=== PATIENT | female | born 1995 | race Caucasian/White ===

== ENCOUNTER 2017-04-26 20:21 | Emergency (ER) | payer BC ==
[~2017-04-26 20:21] MED LIST: ALB18R INH; IMPLANON; METH20TA33 PO; ONDA4TAB PO
--- NOTE | 2017-04-26 20:23 | ER Report ---
History and Physical Time Seen By MD: 20:23 HPI/ROS CHIEF COMPLAINT: Vomiting, abdominal pain HISTORY OF PRESENT ILLNESS: 21-year-old female presents ambulatory the ER complaining of left upper quadrant abdominal pain radiating into her left lower quadrant abdominal area. Patient notes sudden onset approximately one hour prior to arrival after eating pizza. Patient thinks she might be gluten sensitive, but she's never been tested. She taken gluten out of her diet and rechallenged with symptoms. Patient denies dysuria, frequency or hematuria. Patient notes no diarrhea. She denies exposure to ill contacts, recent travel or consumption of bad food. REVIEW OF SYSTEMS: Respiratory: No cough, no dyspnea. Cardiovascular: No chest pain, no palpitations. Gastrointestinal: As above Musculoskeletal: No back pain. Allergies: Coded Allergies: Penicillins (Verified Allergy, Severe, HIVES, 12/11/15) amoxicillin (Verified Allergy, Severe, HIVES, 12/11/15) doxycycline (Verified Allergy, Intermediate, HIVES, 12/11/15) Uncoded Allergies: "JESSE". (Allergy, Mild, LOCAL SWELLING, 02/04/14) Home Meds Active Scripts Ondansetron (ZOFRAN ODT) 4 Mg Tab.rapdis, 4 MG PO every 6 hours Y for NAUSEA/ VOMITING, #12 TAB TAKE 1 TABLET BY MOUTH EVERY 12 HOURS Prov:LUZMARIA GARCIA DO 04/26/17 Oxycodone Hcl/Acetaminophen (PERCOCET 5-325 MG TABLET) 1 Each Tablet, 1 EACH PO Q4-6H Y for PAIN, #12 Prov:LUZMARIA GARCIA DO 04/26/17 Reported Medications Albuterol Sulfate (VENTOLIN HFA) 18 Gm Inh, 2 PUFF INH Q4-6H, INH 12/11/15 [Implanon ] No Conflict Check 02/04/14 Discontinued Reported Medications Methylphenidate Hcl (RITALIN) 20 Mg Tablet, 20 MG PO QDAY 12/11/15 Reviewed Nurses Notes: Yes Old Medical Records Reviewed: Yes Hx Smoking: No Exposure to Second Hand Smoke?: No Hx Substance Use Disorder: No Hx Alcohol Use: No Constitutional Vital Sign - Last 24 Hours 04/26/17 04/26/17 04/26/17 04/26/17 20:28 20:30 20:36 20:51 Temp 98.7 Pulse 55 53 68 Resp 16 B/P (MAP) 126/77 (93) 126/77 Pulse Ox 98 98 95 O2 Delivery Room Air 04/26/17 04/26/17 04/26/17 04/26/17 21:03 21:06 21:21 21:30 Pulse 61 60 B/P (MAP) 120/80 (93) ???/??? (1665) Pulse Ox 97 96 04/26/17 04/26/17 04/26/17 04/26/17 21:35 21:36 21:51 22:00 Pulse 58 70 B/P (MAP) 102/46 (64) 95/46 (62) Pulse Ox 97 98 04/26/17 22:06 Pulse 66 Pulse Ox 98 Physical Exam Vital signs stable, afebrile, pulse ox normal General Appearance: The patient is alert, has no immediate need for airway protection and no current signs of toxicity. Sclerae pale appearing, skin warm and dry HEENT: Pupils equal and round no injection. Oropharynx without redness, mucous. Membranes are moist Respiratory: Chest is non tender, lungs are clear to auscultation. Cardiac: regular rate and rhythm Gastrointestinal: Abdomen is soft. Mild left upper quadrant and left lower quadrant tenderness, no masses, bowel sounds normal. Musculoskeletal: Neck: Neck is supple and non tender. Extremities have full range of motion and are non tender. Skin: No rashes or lesions. DIFFERENTIAL DIAGNOSIS: After history and physical exam differential diagnosis was considered for abdominal pain including but not limited to appendicitis, cholecystitis, gastritis, gastritis, food poisoning, viral syndrome, food sensitivity and urinary tract infection. Medical Decision Making Data Points Result Diagram: 04/26/17210304/26/172103 Laboratory Hematology Test 04/26/17 21:04 04/26/17 21:36 Red Blood Count 4.64 M/uL (4.17-5.56) Mean Corpuscular Volume 91.6 fL (80.0-96.0) Mean Corpuscular Hemoglobin 31.2 pg (26.0-33.0) Mean Corpuscular Hemoglobin Concent 34.0 g/dL (32.0-36.0) Red Cell Distribution Width 13.3 % (11.5-14.5) Mean Platelet Volume 7.6 fL (7.2-11.1) Neutrophils (%) (Auto) 32.6 % (39.4-72.5) Lymphocytes (%) (Auto) 44.1 % (17.6-49.6) Monocytes (%) (Auto) 3.9 % (4.1-12.4) Eosinophils (%) (Auto) 18.9 % (0.4-6.7) Basophils (%) (Auto) 0.5 % (0.3-1.4) Nucleated RBC Relative Count (auto) 0.1 /100WBC Neutrophils # (Auto) 2.6 K/uL (2.0-7.4) Lymphocytes # (Auto) 3.5 K/uL (1.3-3.6) Monocytes # (Auto) 0.3 K/uL (0.3-1.0) Eosinophils # (Auto) 1.5 K/uL (0.0-0.5) Basophils # (Auto) 0.0 K/uL (0.0-0.1) Nucleated RBC Absolute Count (auto) 0.00 K/uL Peripheral Blood Smear Yes Y/N Sodium Level 140 mmol/L (137-145) Potassium Level 3.7 mmol/L (3.5-5.0) Chloride Level 104 mmol/L (98-107) Carbon Dioxide Level 24 mmol/L (22-31) Blood Urea Nitrogen 15 mg/dl (7-18) Creatinine 0.90 mg/dl (0.52-1.04) Glomerular Filtration Rate Calc > 60.0 Random Glucose 84 mg/dl (75-110) Calcium Level 9.1 mg/dl (8.4-10.2) Total Bilirubin 0.3 mg/dl (0.2-1.3) Aspartate Amino Transf (AST/SGOT) 21 U/L (0-35) Alanine Aminotransferase (ALT/SGPT) 36 U/L (0-56) Alkaline Phosphatase 92 U/L (0-126) Total Protein 7.5 gm/dl (6.3-8.2) Albumin 4.3 g/dl (3.5-5.0) Amylase Level 73 U/L (0-110) Lipase 79 U/L (23-300) Human Chorionic Gonadotropin, Qual Negative (NEGATIVE) Urine Color Yellow Urine Clarity Cloudy Urine pH 7.0 pH (4.8-9.5) Urine Specific [place] 1.025 Urine Protein Negative mg/dL (NEGATIVE) Urine Glucose (UA) Negative mg/dL (NEGATIVE) Urine Ketones Negative mg/dL (NEGATIVE) Urine Blood Negative (NEGATIVE) Urine Nitrite Negative (NEGATIVE) Urine Bilirubin Negative (NEGATIVE) Urine Urobilinogen Negative mg/dL (0.2-1.9) Urine Leukocyte Esterase Negative (NEGATIVE) Urine RBC <1 /HPF (0-2/HPF) Urine WBC None /HPF (0-5/HPF) Urine Squamous Epithelial Cells Many /LPF (</=FEW) Urine Bacteria Few /HPF (NONE-FEW) Urine Mucus Few /HPF (NONE-FEW) Chemistry Test 04/26/17 21:04 04/26/17 21:36 White Blood Count 7.9 k/uL (4.5-11.0) Red Blood Count 4.64 M/uL (4.17-5.56) Hemoglobin 14.5 g/dL (12.0-16.0) Hematocrit 42.5 % (34.0-47.0) Mean Corpuscular Volume 91.6 fL (80.0-96.0) Mean Corpuscular Hemoglobin 31.2 pg (26.0-33.0) Mean Corpuscular Hemoglobin Concent 34.0 g/dL (32.0-36.0) Red Cell Distribution Width 13.3 % (11.5-14.5) Platelet Count 238 K/uL (150-450) Mean Platelet Volume 7.6 fL (7.2-11.1) Neutrophils (%) (Auto) 32.6 % (39.4-72.5) Lymphocytes (%) (Auto) 44.1 % (17.6-49.6) Monocytes (%) (Auto) 3.9 % (4.1-12.4) Eosinophils (%) (Auto) 18.9 % (0.4-6.7) Basophils (%) (Auto) 0.5 % (0.3-1.4) Nucleated RBC Relative Count (auto) 0.1 /100WBC Neutrophils # (Auto) 2.6 K/uL (2.0-7.4) Lymphocytes # (Auto) 3.5 K/uL (1.3-3.6) Monocytes # (Auto) 0.3 K/uL (0.3-1.0) Eosinophils # (Auto) 1.5 K/uL (0.0-0.5) Basophils # (Auto) 0.0 K/uL (0.0-0.1) Nucleated RBC Absolute Count (auto) 0.00 K/uL Peripheral Blood Smear Yes Y/N Glomerular Filtration Rate Calc > 60.0 Calcium Level 9.1 mg/dl (8.4-10.2) Total Bilirubin 0.3 mg/dl (0.2-1.3) Aspartate Amino Transf (AST/SGOT) 21 U/L (0-35) Alanine Aminotransferase (ALT/SGPT) 36 U/L (0-56) Alkaline Phosphatase 92 U/L (0-126) Total Protein 7.5 gm/dl (6.3-8.2) Albumin 4.3 g/dl (3.5-5.0) Amylase Level 73 U/L (0-110) Lipase 79 U/L (23-300) Human Chorionic Gonadotropin, Qual Negative (NEGATIVE) Urine Color Yellow Urine Clarity Cloudy Urine pH 7.0 pH (4.8-9.5) Urine Specific [place] 1.025 Urine Protein Negative mg/dL (NEGATIVE) Urine Glucose (UA) Negative mg/dL (NEGATIVE) Urine Ketones Negative mg/dL (NEGATIVE) Urine Blood Negative (NEGATIVE) Urine Nitrite Negative (NEGATIVE) Urine Bilirubin Negative (NEGATIVE) Urine Urobilinogen Negative mg/dL (0.2-1.9) Urine Leukocyte Esterase Negative (NEGATIVE) Urine RBC <1 /HPF (0-2/HPF) Urine WBC None /HPF (0-5/HPF) Urine Squamous Epithelial Cells Many /LPF (</=FEW) Urine Bacteria Few /HPF (NONE-FEW) Urine Mucus Few /HPF (NONE-FEW) Urinalysis Test 04/26/17 21:36 Urine Color Yellow Urine Clarity Cloudy Urine pH 7.0 pH (4.8-9.5) Urine Specific [place] 1.025 Urine Protein Negative mg/dL (NEGATIVE) Urine Glucose (UA) Negative mg/dL (NEGATIVE) Urine Ketones Negative mg/dL (NEGATIVE) Urine Blood Negative (NEGATIVE) Urine Nitrite Negative (NEGATIVE) Urine Bilirubin Negative (NEGATIVE) Urine Urobilinogen Negative mg/dL (0.2-1.9) Urine Leukocyte Esterase Negative (NEGATIVE) Urine RBC <1 /HPF (0-2/HPF) Urine WBC None /HPF (0-5/HPF) Urine Squamous Epithelial Cells Many /LPF (</=FEW) Urine Bacteria Few /HPF (NONE-FEW) Urine Mucus Few /HPF (NONE-FEW) ED Course/Re-evaluation Clinical Indication for ER IV: Hydration, IV Access ED Course Patient was admitted to an examination room. H&P was done. The differential diagnoses was considered. On clinical examination. Patient has a benign nonsurgical abdomen. She is grossly treated with IV fluid hydration, Zofran, total, fentanyl. She feels much better on reevaluation. Her diagnostic studies show nothing, unremarkable. Patient tolerates by mouth challenge. She was discharged home on clear liquid diet. Patient's provided Percocet and Zofran for symptomatically management. She is advised ibuprofen as well. Decision to Disposition Date: Apr 26, 2017 Decision to Disposition Time: 22:17 Depart Departure Latest Vital Signs Vital Signs Date Time Temp Pulse Resp B/P (MAP) Pulse Ox O2 Delivery O2 Flow Rate FiO2 04/26/17 22:06 66 98 04/26/17 22:00 95/46 (62) 04/26/17 20:30 98.7 16 Room Air Impression: Primary Impression: Abdominal pain Additional Impression: Vomiting Condition: Improved Disposition: HOME OR SELF-CARE New Scripts Ondansetron (ZOFRAN ODT) 4 Mg Tab.rapdis 4 MG PO every 6 hours Y for NAUSEA/VOMITING, #12 TAB TAKE 1 TABLET BY MOUTH EVERY 12 HOURS Prov: LUZMARIA GARCIA DO 04/26/17 Oxycodone Hcl/Acetaminophen (PERCOCET 5-325 MG TABLET) 1 Each Tablet 1 EACH PO Q4-6H Y for PAIN, #12 Prov: LUZMARIA GARCIA DO 04/26/17 Patient Instructions: Abdominal Pain (ED), Clear Liquid Diet (ED) Additional Instructions: Follow clear liquid diet for 24-48 hours and advance to [place] diet, bananas, rice, applesauce, toast Take ibuprofen 200 mg 3 tablets 3 times a day for inflammatory pain relief Follow-up with your primary care if unimproved in 3-5 days Problem Qualifiers Primary Impression: Abdominal pain Abdominal location: epigastric Qualified Codes: R10.13 - Epigastric pain Additional Impression: Vomiting Vomiting type: unspecified Vomiting Intractability: unspecified Nausea presence: unspecified Qualified Codes: R11.10 - Vomiting, unspecified LUZMARIA GARCIA DO Apr 26, 2017 20:23
[2017-04-26] MEDS ORDERED: KETOROLAC 30 MG/ML VIAL IVP ONE (20:40)
[2017-04-26] MEDS ORDERED: fentaNYL CITR 100 MCG/2 ML AMP IVP ONE (20:40)
[2017-04-26] MEDS ORDERED: NS(*) 0.9% 1000 ML BAG 1,000 ML IV ONE (20:40)
[2017-04-26] MEDS ORDERED: ONDANSETRON 4 MG/2 ML VIAL IVP ONE (20:40)
[2017-04-26 21:22] LABS: PLATELET COUNT, AUTOMATED 238 K/uL (150-450)
[2017-04-26 22:00] VITALS: BP 95/46
[2017-04-26] MEDS ORDERED: OXYC-865 PO (22:19)
[2017-04-26] MEDS ORDERED: ONDA4TAB PO (22:19)
[2017-04-26] MEDS ORDERED: MORPHINE 2 MG/ML SYR IVP ONE (22:20)
[2017-04-26] MEDS ORDERED: oxyCODONE/ACETAMIN 5/325MG TH 2 TAB/BOTTLE PO ONE (22:20)
[2017-04-26] MEDS ORDERED: ONDANSETRON 4 MG ODT TH SL ONE (22:20)
== END 2017-04-26 22:43 | disposition home or self-care (01) ==
LOC: ER 20:33
DX: R10.13 Epigastric pain (principal); R11.10 Vomiting, unspecified
CPT/HCPCS: 81001; 82150; 83690; 84703; 85025; 96361; 96374; 96375; 99284; J1885; J2270; J2405; J3010; J7030; S0119; 82040; 82247; 82310; 82374; 82435; 82565; 82947; 84075; 84132; 84155; 84295; 84450; 84460; 84520